=== PATIENT | male | born 1970 | race Caucasian/White ===

== ENCOUNTER 2018-07-08 10:45 | Outpatient (REF) | payer MEDICAID, SELFPAY ==
[2018-07-08 20:55] LABS: ALT 35 U/L (12-78); AST 21 U/L (15-37); Albumin 3.9 g/dL (3.4-5.0); Alkaline Phosphatase 119 U/L (46-116); Anion Gap 7.9 mmol/L (3-11); BUN 8 mg/dL (7-18); Bilirubin, Total 0.3 mg/dL (0.2-1.0); CO2 27.1 mmol/L (21.0-32.0); CREATININE 0.89 mg/dL (0.70-1.30); Calcium 9.3 mg/dL (8.5-10.1); Chloride 103 mmol/L (98-107); Glucose 107 mg/dL (70-100); Potassium 4.2 mmol/L (3.5-5.1); Sodium 138 mmol/L (136-145); Total Protein 7.1 g/dL (6.4-8.2)
== END 2018-07-08 11:05 ==
LOC: NCHCN 10:45
PROVIDERS: PCP Registered Nurse; Visit Provider Registered Nurse
DX: E11.9 Type 2 diabetes mellitus without complications (principal); I10 Essential (primary) hypertension
CPT/HCPCS: 80053

== ENCOUNTER 2018-12-22 14:22 | Outpatient (REF) | payer MEDICAID, SELFPAY ==
[2018-12-22 21:14] LABS: COMMENT (LAB VIEW ONLY) 67.79 mg/dL
== END 2018-12-22 14:42 ==
LOC: NCHCN 14:22
PROVIDERS: PCP Registered Nurse; Visit Provider Registered Nurse
DX: E11.9 Type 2 diabetes mellitus without complications (principal)
CPT/HCPCS: 82043; 82570

== ENCOUNTER 2019-04-27 12:17 | Outpatient (REF) | payer MEDICAID, SELFPAY ==
[2019-04-27 21:47] LABS: Anion Gap 11.4 mmol/L (3-11); BUN 12 mg/dL (7-18); CO2 26.6 mmol/L (21.0-32.0); CREATININE 0.98 mg/dL (0.70-1.30); Calcium 9.5 mg/dL (8.5-10.1); Chloride 99 mmol/L (98-107); Glucose 151 mg/dL (70-100); Potassium 4.3 mmol/L (3.5-5.1); Sodium 137 mmol/L (136-145)
== END 2019-04-27 12:37 ==
LOC: NCHCN 12:17
PROVIDERS: PCP Registered Nurse; Visit Provider Registered Nurse
DX: I10 Essential (primary) hypertension (principal)
CPT/HCPCS: 80048

== ENCOUNTER 2019-07-08 10:00 | Outpatient (REF) | payer MEDICAID, SELFPAY ==
[2019-07-08 21:35] LABS: Anion Gap 10.9 mmol/L (3-11); BUN 10 mg/dL (7-18); CO2 26.1 mmol/L (21.0-32.0); CREATININE 0.87 mg/dL (0.70-1.30); Calcium 9.1 mg/dL (8.5-10.1); Chloride 104 mmol/L (98-107); Glucose 107 mg/dL (70-100); Potassium 3.5 mmol/L (3.5-5.1); Sodium 141 mmol/L (136-145)
== END 2019-07-08 10:20 ==
LOC: NCHCN 10:00
PROVIDERS: PCP Registered Nurse; Visit Provider Registered Nurse
DX: I10 Essential (primary) hypertension (principal)
CPT/HCPCS: 80048

== ENCOUNTER 2020-03-16 09:48 | Outpatient (REF) | payer MEDICAID, SELFPAY ==
[2020-03-16 19:35] LABS: Abs Immature Grans 0.03 k/cumm (0.0-0.09); Absolute Basophil Count 0.04 k/cumm (0.0-0.2); Absolute Eosinophil Count 0.22 k/cumm (0.0-0.7); Absolute Lymphocyte Count 3.13 k/cumm (1.2-3.4); Absolute Monocyte Count 0.54 k/cumm (0.11-0.7); Absolute Neutrophil Count 3.15 k/cumm (1.2-6.7); Basophils % 0.6; Eosinophils % 3.1; HCT 46.7 % (40.0-50.0); HGB 16.4 g/dL (13.5-17.5); Immature Grans % 0.4 %; Mean Corp. HGB Concentration 35.1 g/dL (32.0-36.0); Mean Corpuscular Hemoglobin 31.6 pg (27.0-33.0); Mean Platelet Volume 10.2 fL (8.0-11.0); Monocytes % 7.6; Neutrophils % 44.3; Platelet Count 336 x1000/uL (130-400); RBC 5.19 m/cumm (4.50-6.00); RBC Distribution Width 14.7 % (11.8-14.1); White Blood Cell Count 7.11 k/cumm (4.4-10.8)
[2020-03-16 19:58] LABS: ALT 66 U/L (16-63); AST 33 U/L (15-37); Alkaline Phosphatase 111 U/L (46-116); Anion Gap 10.1 mmol/L (3-11); BUN 16 mg/dL (7-18); Bilirubin, Total 0.3 mg/dL (0.2-1.0); CO2 24.9 mmol/L (21.0-32.0); CREATININE 0.93 mg/dL (0.70-1.30); Calcium 9.4 mg/dL (8.5-10.1); Chloride 102 mmol/L (98-107); Glucose 136 mg/dL (74-106); Magnesium 1.5 mg/dL (1.8-2.4); Potassium 4.4 mmol/L (3.5-5.1); Sodium 137 mmol/L (136-145); TSH 1.95 uIU/mL (0.36-3.74); Total Protein 7.1 g/dL (6.4-8.2)
== END 2020-03-16 10:08 ==
LOC: NCHCN 09:48
PROVIDERS: PCP Registered Nurse; Visit Provider Registered Nurse
DX: R07.9 Chest pain, unspecified (principal)
CPT/HCPCS: 80053; 83735; 84443; 85025

== ENCOUNTER 2020-04-19 13:53 | Outpatient (REF) | payer MEDICAID, SELFPAY ==
[2020-04-22 17:47] LABS: SARS-CoV-2 RNA Undetected (Undetected); SARS-CoV-2 Specimen Source Nasopharynx
== END 2020-04-19 14:13 ==
LOC: NCHCN 13:53
PROVIDERS: PCP Registered Nurse; Visit Provider Registered Nurse
DX: Z11.59 Encounter for screening for other viral diseases (principal)
CPT/HCPCS: U0003

== ENCOUNTER 2020-10-21 15:15 | Outpatient (REF) | payer MEDICAID, SELFPAY ==
[2020-10-21 21:46] LABS: Calculated LDL 86 mg/dL (<100); Cholesterol 146 mg/dL (<200); HDL Cholesterol 27 mg/dL (40-60); Triglyceride 169 mg/dL (<150)
== END 2020-10-21 15:16 | disposition home or self-care (01) ==
LOC: NCHCN 15:15
PROVIDERS: PCP Registered Nurse; Visit Provider Registered Nurse
DX: E11.9 Type 2 diabetes mellitus without complications (principal)
CPT/HCPCS: 80061

== ENCOUNTER 2021-01-19 07:42 | Outpatient (REF) | payer MEDICAID, SELFPAY ==
[2021-01-19 14:38] LABS: Calculated LDL 92 mg/dL (<100); Cholesterol 162 mg/dL (<200); HDL Cholesterol 30 mg/dL (40-60); Triglyceride 204 mg/dL (<150)
== END 2021-01-19 07:43 | disposition home or self-care (01) ==
LOC: NCHCN 07:42
PROVIDERS: PCP Registered Nurse; Visit Provider Registered Nurse
DX: E78.6 Lipoprotein deficiency (principal)
CPT/HCPCS: 80061

== ENCOUNTER 2021-03-15 17:40 | Outpatient (REF) | payer MEDICAID, SELFPAY ==
[2021-03-15 22:25] LABS: COMMENT (LAB VIEW ONLY) 387.62 mg/dL
[2021-03-15 22:27] LABS: ALT 44 U/L (16-63); AST 26 U/L (15-37); Albumin 4.2 g/dL (3.4-5.0); Alkaline Phosphatase 106 U/L (46-116); Anion Gap 12.5 mmol/L (3-11); BUN 15 mg/dL (7-18); Bilirubin, Total 0.4 mg/dL (0.2-1.0); CO2 24.5 mmol/L (21.0-32.0); CREATININE 1.2 mg/dL (0.70-1.30); Calcium 9.7 mg/dL (8.5-10.1); Chloride 101 mmol/L (98-107); Glucose 87 mg/dL (74-106); Potassium 4.1 mmol/L (3.5-5.1); Sodium 138 mmol/L (136-145); Total Protein 7.6 g/dL (6.4-8.2)
== END 2021-03-15 17:41 | disposition home or self-care (01) ==
LOC: NCHCN 17:40
PROVIDERS: PCP Registered Nurse; Visit Provider Registered Nurse
DX: E11.9 Type 2 diabetes mellitus without complications (principal); I10 Essential (primary) hypertension
CPT/HCPCS: 80053; 82043; 82570

== ENCOUNTER 2022-03-07 17:02 | Outpatient (REF) | payer MEDICAID, SELFPAY ==
[2022-03-07 15:34] LABS: Hemoglobin A1C 6.1 % (<5.7)
[2022-03-07 15:41] LABS: ALT 35 U/L (16-63); AST 32 U/L (15-37); Albumin 3.9 g/dL (3.4-5.0); Alkaline Phosphatase 124 U/L (46-116); Anion Gap 6.6 mmol/L (3-11); BUN 18 mg/dL (7-18); Bilirubin, Total 0.4 mg/dL (0.2-1.0); CO2 26.4 mmol/L (21.0-32.0); CREATININE 1.1 mg/dL (0.70-1.30); Chloride 104 mmol/L (98-107); Glucose 97 mg/dL (74-106); Potassium 4.2 mmol/L (3.5-5.1); Sodium 137 mmol/L (136-145); Total Protein 7.1 g/dL (6.4-8.2)
[2022-03-07 16:27] LABS: COMMENT (LAB VIEW ONLY) 500.68 mg/dL; Microalb ug/mg Crea 5.5 ug/mg Cr
== END 2022-03-07 17:03 | disposition home or self-care (01) ==
LOC: NCHCN 17:02
PROVIDERS: PCP Registered Nurse; Visit Provider Registered Nurse
DX: I10 Essential (primary) hypertension (principal); E11.9 Type 2 diabetes mellitus without complications; E66.8 Other obesity
CPT/HCPCS: 80053; 82043; 82570; 83036

== ENCOUNTER 2023-03-27 18:08 | Outpatient (REF) | payer MEDICAID, SELFPAY ==
[2023-03-27 21:38] LABS: ALT 51 U/L (16-63); AST 25 U/L (15-37); Albumin 4.2 g/dL (3.4-5.0); Alkaline Phosphatase 110 U/L (46-116); Anion Gap 12.1 mmol/L (3-11); BUN 14 mg/dL (7-18); Bilirubin, Total 0.6 mg/dL (0.2-1.0); CO2 24.9 mmol/L (21.0-32.0); CREATININE 1.2 mg/dL (0.70-1.30); Calcium 9.4 mg/dL (8.5-10.1); Calculated LDL 38 mg/dL (<100); Chloride 103 mmol/L (98-107); Cholesterol 140 mg/dL (<200); Estimated GFR 73.22 (mL/min/1.73m2); Glucose 156 mg/dL (74-106); HDL Cholesterol 27 mg/dL (40-60); Potassium 3.6 mmol/L (3.5-5.1); Sodium 140 mmol/L (136-145); Total Protein 7.2 g/dL (6.4-8.2); Triglyceride 377 mg/dL (<150)
[2023-03-27 21:59] LABS: GGT 37 U/L (15-85)
[2023-03-28 20:31] LABS: PSA, Screening 0.2 ng/mL (<=3.5)
== END 2023-03-27 18:09 | disposition home or self-care (01) ==
LOC: NCHCN 18:08
PROVIDERS: PCP Registered Nurse; Visit Provider Registered Nurse
DX: Z12.5 Encounter for screening for malignant neoplasm of prostate (principal); I10 Essential (primary) hypertension; E66.9 Obesity, unspecified
CPT/HCPCS: 80053; 80061; 84153; 82977

== ENCOUNTER 2023-06-25 16:15 | Outpatient (REF) | payer MEDICAID, SELFPAY | END 2023-06-25 16:16 | disposition home or self-care (01) | LOC: NCHCN 16:15 | PROVIDERS: PCP Registered Nurse; Visit Provider Nurse Practitioner Family | DX: I10 Essential (primary) hypertension (principal); E11.9 Type 2 diabetes mellitus without complications; F17.210 Nicotine dependence, cigarettes, uncomplicated | CPT/HCPCS: 82043; 82570 ==

== ENCOUNTER 2023-10-23 13:54 | Outpatient (REF) | payer MEDICAID, SELFPAY ==
[2023-10-23 21:10] LABS: Anion Gap 10.8 mmol/L (3-11); BUN 11 mg/dL (7-18); CO2 26.2 mmol/L (21.0-32.0); CREATININE 1.2 mg/dL (0.70-1.30); Calcium 9.8 mg/dL (8.5-10.1); Chloride 103 mmol/L (98-107); Estimated GFR 73.22 (mL/min/1.73m2); Glucose 149 mg/dL (74-106); Potassium 3.6 mmol/L (3.5-5.1); Sodium 140 mmol/L (136-145)
[2023-10-23 21:25] LABS: Hemoglobin A1C 6.6 % (<5.7)
== END 2023-10-23 13:55 | disposition home or self-care (01) ==
LOC: NCHCN 13:54
PROVIDERS: PCP Registered Nurse; Visit Provider Nurse Practitioner Family
DX: E11.9 Type 2 diabetes mellitus without complications (principal); I10 Essential (primary) hypertension
CPT/HCPCS: 80048; 83036

== ENCOUNTER 2024-09-15 08:46 | Outpatient (REF) | payer MEDICAID, SELFPAY ==
[2024-09-15 16:37] LABS: ALT 52 U/L (16-63); AST 39 U/L (15-37); Alkaline Phosphatase 133 U/L (46-116); Anion Gap 11.3 mmol/L (3-11); BUN 17 mg/dL (7-18); CO2 23.7 mmol/L (21.0-32.0); CREATININE 1.1 mg/dL (0.70-1.30); Calcium 9.3 mg/dL (8.5-10.1); Chloride 105 mmol/L (98-107); Cholesterol 141 mg/dL (<200); Estimated GFR 80.77 (mL/min/1.73m2); Glucose 168 mg/dL (74-106); HDL Cholesterol 27 mg/dL (40-60); Potassium 3.9 mmol/L (3.5-5.1); Sodium 140 mmol/L (136-145); Total Protein 7.2 g/dL (6.4-8.2); Triglyceride 453 mg/dL (<150)
[2024-09-15 17:45] LABS: COMMENT (LAB VIEW ONLY) 126.58 mg/dL; Microalb ug/mg Crea 10.4 ug/mg Cr
[2024-09-15 17:54] LABS: LDL CHOLESTEROL 77 mg/dL (<100)
[2024-09-15 22:26] LABS: PSA, Screening 0.3 ng/mL (<=3.5)
== END 2024-09-15 08:47 | disposition home or self-care (01) ==
LOC: NCHCN 08:46
PROVIDERS: PCP Registered Nurse; Visit Provider Nurse Practitioner Family
DX: E11.9 Type 2 diabetes mellitus without complications (principal); I10 Essential (primary) hypertension; E78.5 Hyperlipidemia, unspecified; Z12.5 Encounter for screening for malignant neoplasm of prostate
CPT/HCPCS: 80053; 80061; 83721; 84153; 82043; 82570